=== PATIENT | female | born 1985 | race Caucasian/White ===

== ENCOUNTER 2016-03-13 14:08 | Emergency (ER) | payer MEDICAID | END 2016-03-13 16:25 | disposition home or self-care (01) | LOC: D.ER 14:08 | DX: S32.2XXA Fracture of coccyx, initial encounter for closed fracture (principal); X58.XXXA Exposure to other specified factors, initial encounter; Y93.89 Activity, other specified; Y92.89 Other specified places as the place of occurrence of the external cause; F17.200 Nicotine dependence, unspecified, uncomplicated ==

== ENCOUNTER 2016-05-31 22:38 | Emergency (ER) | payer MEDICAID | END 2016-06-01 02:10 | disposition home or self-care (01) | LOC: D.ER 22:38 | DX: S00.83XA Contusion of other part of head, initial encounter (principal); S00.12XA Contusion of left eyelid and periocular area, initial encounter; S00.432A Contusion of left ear, initial encounter; Y04.2XXA Assault by strike against or bumped into by another person, initial encounter; Y93.89 Activity, other specified; Y92.89 Other specified places as the place of occurrence of the external cause; S16.1XXA Strain of muscle, fascia and tendon at neck level, initial encounter; F17.200 Nicotine dependence, unspecified, uncomplicated ==

== ENCOUNTER 2016-08-05 03:20 | Emergency (ER) | payer MEDICAID | END 2016-08-05 04:10 | disposition home or self-care (01) | LOC: D.ER 03:20 | DX: S99.922A Unspecified injury of left foot, initial encounter (principal); X58.XXXA Exposure to other specified factors, initial encounter; Y93.89 Activity, other specified; Y92.89 Other specified places as the place of occurrence of the external cause; F17.200 Nicotine dependence, unspecified, uncomplicated ==